=== PATIENT | male | born 1955 | race Caucasian/White ===

== ENCOUNTER 2018-10-08 07:08 | Inpatient (IN) | payer BC, OTHER ==
[~2018-10-08] VITALS: Ht 190.5 cm; Wt 133.4 kg
[2018-10-08 07:17] VITALS: BP 149/85
[2018-10-08 15:04] VITALS: BP 127/82
[2018-10-08 15:13] VITALS: Ht 190.5 cm; Wt 133.4 kg
[2018-10-08 18:04] VITALS: BP 142/78
[2018-10-08 21:17] VITALS: BP 1116/79; BP 118/54
[2018-10-09 05:18] VITALS: BP 105/66
[2018-10-09 05:59] LABS: BASOPHIL % 0.2 % (0-2)
[2018-10-09 06:06] LABS: CALCIUM 8.4 mg/dL (8.5-10.1); CREATININE SERUM 1.3 mg/dL (0.7-1.3); POTASSIUM SERUM 4.1 mmol/L (3.5-5.1)
[2018-10-09 06:14] LABS: PLATELET COUNT 107 x10^3mcL (130-400); RED CELL DISTRIBUTION WIDTH 15.1 % (11.5-14.5)
[2018-10-09 08:37] VITALS: BP 135/72
[2018-10-09 17:36] VITALS: BP 136/74
[2018-10-09 20:57] VITALS: BP 111/65
[2018-10-10 05:21] VITALS: BP 151/79
[2018-10-10 08:47] VITALS: BP 134/76
[2018-10-10 09:11] VITALS: BP 134/76
[2018-10-10] MEDS ORDERED: GOOD SENSE ASPI81 M3 PO (12:02)
[2018-10-10] MEDS ORDERED: NORCO1 TA2 PO (12:03)
[2018-10-10] MEDS ORDERED: COLACE100 MG PO (12:06)
[2018-10-10 13:04] VITALS: BP 134/76
== END 2018-10-10 15:43 | disposition home health service (06) | DRG 470 ==
LOC: DU 07:08 → DS 07:08 → DU 07:08 → MU 07:08 → DS 09:00 → MU 09:00 → EDSTATUS 09:00 → MU 14:57 → DU 15:08 → MU 15:08 → DU 15:08 → MU 10-09 12:21 → DS 10-09 12:21 → MU 10-10 15:43
PROVIDERS: ADMIT Orthopaedic Surgery
PROC: 0SRC0JZ Replacement of Right Knee Joint with Synthetic Substitute, Open Approach (ICD-10-PCS; principal; 2018-10-09)
DX: M17.11 Unilateral primary osteoarthritis, right knee (principal); Z88.0 Allergy status to penicillin
CPT/HCPCS: 97110-GP; 97116-GP; 97530-GP; C1713; C1776; J0690; J1170; J1885; J2270; J2274; J2704; J3490; J7030; J7120